=== PATIENT | female | born 1935 | race Caucasian/White ===

== ENCOUNTER 2016-12-03 10:33 | Day surgery (SDC) | payer OTHER, BC ==
[2016-11-18 12:09] VITALS: BMI 25.1
--- NOTE | 2016-11-26 13:28 | HP ---
Admitting History and Physical - Primary Care Physician PCP: Andrew Michaels - Admission Chief Complaint: Left upper back/shoulder melanoma History of Present Illness: 81 year old postmenapausal female after seeing her physical scientist who noted left upper back pigmented lesion. Shave biopsy revealed 1.7 mm melanoma without ulceration but positive deep margin. History Source: Patient Limitations to Obtaining History: No Limitations - Past Medical History Cardiovascular: Yes: Hyperlipdemia Heme/Onc: Yes: Other (CLL) Psych: Yes: Depression Endocrine: Yes: Hypothyroidism Additional Past Medical History: CLL and chronic left shoulder pain - Past Surgical History Additional Past Surgical History: BX left upper back lesion melanoma 10/2016 - Advance Directives Advance Directives: Yes: Living Will, Health Care Proxy - Smoking History Smoking history: Former smoker Have you smoked in the past 12 months: No If you are a former smoker, when did you quit?: 15 yrs ago - Alcohol/Substance Use Hx Alcohol Use: No Home Medications - Allergies Allergies/Adverse Reactions: Allergies Allergy/AdvReac Type Severity Reaction Status Date / Time No Known Allergies Allergy Verified 11/18/16 12:09 - Home Medications Home Medications: Ambulatory Orders Aripiprazole [Abilify] 5 mg PO DAILY 11/18/16 Gabapentin 400 mg PO DAILY 11/18/16 Ibrutinib [Imbruvica] 140 mg PO DAILY 11/18/16 Levothyroxine [Synthroid -] 100 mcg PO DAILY 11/18/16 Rosuvastatin Calcium [Crestor] 20 mg PO HS 11/18/16 Family Disease History - Family Disease History Family Disease History: CA: Mother (liver cancer 62) Physical Examination Constitutional: Yes: Well Nourished Extremities: Yes: Other (Left axillary lymph node soft 1.5 cm, left upper back1.0 cm eschar w/o pigmentation) Problem List - Problems (1) Melanoma Code(s): C43.9 - MALIGNANT MELANOMA OF SKIN, UNSPECIFIED Qualifiers: Melanoma location: unspecified site Qualified Code(s): C43.9 - Malignant melanoma of skin, unspecified Assessment/Plan Malignant Wide excision left upper back sentenel node biopsy , lymphoscintogram possible dissection
[2016-12-03] MEDS ORDERED: ONDANSETRON 4 MG/2 ML VIAL IVPB PRN (11:59)
[2016-12-03] MEDS ORDERED: KETOROLAC TROMETHAMINE 30 MG/1 ML VIAL IVPUSH PRN (11:59)
[2016-12-03] MEDS ORDERED: DEXTROSE 5%-0.45% SALINE 1,000 ML IV SCH (12:00)
[2016-12-03] MEDS ORDERED: ISOSULFAN BLUE 10 MG/ML VIAL SQ ONE (12:05)
[2016-12-03] MEDS ORDERED: LIDOCAINE HCL 1%, 10 MG/ML (20ML VIAL) ONE (12:05)
[2016-12-03] MEDS ORDERED: BUPIVACAINE HCL/PF 2.5 MG/ML - 30 ML VIAL IJ ONE (12:05)
[2016-12-03] MEDS ORDERED: GUM MASTIC/STORAX/MSAL/ALCOHOL 1 DRP DROPSBTL MC ONE (12:06)
[2016-12-03] MEDS ORDERED: LIDOCAINE HCL/PF 2% SDV 5ML VIAL ONE (12:31)
[2016-12-03] MEDS ORDERED: PROPOFOL 20 ML ONE ×2 (12:31)
[2016-12-03] MEDS ORDERED: ROCURONIUM BROMIDE 50 MG/5 ML VIAL ONE (12:32)
[2016-12-03] MEDS ORDERED: LIDOCAINE 1%/EPI 1:100000 (20 ML MULTI DOSE VIAL) ONE (12:34)
[2016-12-03] MEDS ORDERED: ceFAZolin SODIUM 1 GM VIAL ONE (12:42)
[2016-12-03] MEDS ORDERED: ePHEDrine SULFATE 50 MG/1 ML AMPULE ONE (12:50)
[2016-12-03] MEDS ORDERED: ONDANSETRON 4 MG/2 ML VIAL ONE (13:42)
[2016-12-03] MEDS ORDERED: LIDOCAINE 1%/EPI 1:100000 (50 ML MULTI DOSE VIAL) INF ONE (14:08)
[2016-12-03] MEDS ORDERED: ONDANSETRON 4 MG/2 ML VIAL IVPUSH PRN (14:39)
[2016-12-03] MEDS ORDERED: PROMETHAZINE HCL 25 MG/1 ML VIAL IVPUSH PRN (14:39)
[2016-12-03] MEDS ORDERED: LACTATED RINGERS SOLUTION 1,000 ML IV SCH (14:45)
[2016-12-03 15:07] VITALS: PULSE 61
[2016-12-03] MEDS ORDERED: ACETAMINOPHEN 500 MG TABLET (FP) PO ONE (16:00)
--- NOTE | 2016-12-03 16:31 | OP ---
DATE OF OPERATION: 12/03/2016 PREOPERATIVE DIAGNOSIS: Left shoulder melanoma, intermediate. POSTOPERATIVE DIAGNOSIS: Left shoulder melanoma, intermediate. PROCEDURE: Left shoulder wide excision and attempt at left axillary and left cervical sentinel node biopsy. ANESTHESIA: General intubated. ATTENDING SURGEON: Andrew Michaels M.D. ICE PLATFORM SUPERVISOR: Shahram Morales ESTIMATED BLOOD LOSS: Minimal. COMPLICATIONS: None. PROCEDURE: Patient was made aware of the risks and benefits of the procedure and consented. She was placed in the supine position. After general anesthesia was induced, the patient was intubated. Under sterile conditions, 1.5 mL of 1% isosulfan blue is infiltrated into the peritumoral tissues. Waiting approximately 10 minutes before a left axillary incision was made using blunt and sharp dissection, this was resected down. Examination of the axilla revealed very multiple rubbery lymph nodes consistent with a prior diagnosis of CLL, but no blue lymph node. The Neoprobe was used to interrogate the axilla, but it was very hard to narrow down where radioactivity was coming from. Two lymph nodes were surgically excised and submitted for permanent sectioning. No other evidence of hot or blue lymph nodes were identified. The incision was then closed with deep 3-0 Vicryl followed by running subcuticular 4-0 Monocryl. Cervical region was identified, supraclavicularly transverse incision was made using electrocautery. The deep tissues were incised using blunt and sharp dissection. Tissues were dissected, now revealing some lymph nodes, but again after interrogation there was no blue or hot uptake. It was felt best to avoid injuring these structures if there is no lymphatic mapping to them, and therefore this portion of the incisional biopsy was aborted. The wound was closed with interrupted 3-0 Vicryl followed by running subcuticular 4-0 Monocryl. Steri-Strips and a sterile bandage were applied to both incisions. The patient was then placed in the right lateral decubitus position, 2 cm margin as well as ellipse were made around the primary cancer. Using 1% lidocaine with epinephrine for local anesthesia and hemostasis. Transversely oriented elliptical incision was made. Using electrocautery, tissues were dissected down to the muscular fascia, which was incised with a specimen, this was submitted with a short suture at 12 o'clock and a long sutures at 9 o'clock. Hemostasis was maintained by pressure and electrocautery. Thick skin flaps were made superiorly and inferiorly, excising some of the underlying fascia to get further compliance with the flaps. These were then closed with interrupted 3-0 Vicryl followed by a running subdermal 3-0 Vicryl, followed by running simple sutures of 3-0 nylon in the skin. Sterile dressing applied, and the patient tolerated the procedure, was sent to recovery room in excellent condition. ANDREW MICHAELS M.D. [id number]
[2016-12-03 16:38] VITALS: BP 125/68; TEMP 98
--- NOTE | 2016-12-06 14:25 | PATH ---
Surgical Pathology Report Patient Name: GEM GOTTI [facility]. Rec. #: [id number] /Age/Gender: 1935 (Age: 81) / F Account: [id number] Location: [facility] Taken: 12/03/2016 Received: 12/03/2016 Reported: 12/06/2016 Physicians: Andrew Michaels M.D. Specimen(s) Received A: LEFT AXILLARY NODES B: LEFT SHOULDER WIDE EXCISION Clinical History Left shoulder melanoma Final Diagnosis A. SENTINEL LYMPH NODES, LEFT AXILLARY, BIOPSY: TWO LYMPH NODE, NEGATIVE FOR METASTATIC MELANOMA BY H&E AND IMMUNOSTAINS (0/2). Comment: Immunohistochemical stains for Melan A and SOX10 performed at [place], [place] ([id number]) on blocks A1 and A2 and interpreted at [facility] are negative supporting the interpretation above. B. SKIN AND UNDERLYING SOFT TISSUE, LEFT SHOULDER, WIDE EXCISION: FOCAL RESIDUAL MALIGNANT MELANOMA (0.5 MM FOCUS), SUPERFICIAL SPREADING TYPE; ATYPICAL MELANOCYTES AT THE DERMAL-EPIDERMAL JUNCTION ALSO PRESENT. TUMOR THICKNESS: 1.8 CM (MEASURED IN THIS SPECIMNEN, SEE COMMENT). ANATOMIC LEVEL: LEVEL IV. ULCERATION: ABSENT. MICROSATELLITOSIS: ABSENT. MITOTIC INDEX: SEE COMMENT. TUMOR REGRESSION: NOT IDENTIFIED. LYMPHOVASCULAR INVASION: NOT IDENTIFIED. SURGICAL RESECTION MARGINS: NEGATIVE FOR MELANOMA; CLOSEST RESECTION MARGIN (PERIPHERAL AT 7:00) IS 0.7 CM AWAY FROM MELANOMA; ATYPICAL JUNCTIONAL MELANOCYTES ARE >2 MM FROM THE PERIPHERAL MARGIN. DERMAL SCAR PRESENT. SOLAR ELASTOSIS PRESENT. PATHOLOGIC STAGING: PRIMARY TUMOR: pT2a LYMPH NODES: pN0 Comment: The prior biopsy showed malignant melanoma, superficial spreading type comment with the thickness of least 1.7 mm, level IV, without ulceration and with the mitotic index of 13/mm2. Comments Melanoma Case Summary (based on AJCC, 7th edition) Procedure: _x_ Excision Specimen Laterality: _x_ Left Tumor Site: Specify: left shoulder Tumor Size (required only if tumor is grossly present): _x_ Cannot be determined (explain): tumor is not grossly seen Macroscopic Satellite Nodules: _x_ Not identified Histologic Type: Invasive Melanoma _x_ Superficial spreading melanoma Melanoma In Situ: _x_ Atypical melanocytes at the dermal-epidermal junction present Maximum Tumor Thickness: 1.8 mm Anatomic Level: _x_ IV (melanoma invades reticular dermis) Ulceration _x_ Not identified Margins: Peripheral Margins _x_ Uninvolved by invasive melanoma Distance of invasive melanoma from closest peripheral margin: 7 mm Location: 7:00 _x_ Uninvolved by melanoma in situ (atypical melanocytes at the dermal-epidermal junction) Distance of from closest margin to atypical junctional melanocytes: >2 mm Closest location: 6:00 Deep Margin _x_ Uninvolved by invasive melanoma Distance of invasive melanoma from margin: 16 mm Mitotic Rate _x_ =1/mm2 (13/mm2) (determined on the prior biops) Microsatellitosis: _x_ Not identified Lymph-Vascular Invasion _x_ Not identified Perineural Invasion _x_ Not identified Tumor-Infiltrating Lymphocytes _x_ Present, brisk Tumor Regression _x_ Not identified Lymph Nodes: Total number of nodes examined (sentinel and nonsentinel): 2 Number of sentinel nodes examined: 2 Number of lymph nodes with metastases: 0 Extranodal tumor extension: not applicable Pathologic Staging (pTNM): Primary Tumor (pT): pT2a (Melanoma 1.01 to 2.0 mm in thickness, no ulceration) Regional Lymph Nodes (pN): pN0 Distant Metastasis (pM): not applicable Electronically Signed Waldo Garcia M.D. Gross Description A. Received in formalin labeled "left axillary nodes" are 2 rivera, irregular lymph nodes measuring 0.9 x 0.6 x 0.4 cm and 0.9 x 0.8 x 0.4 cm. The specimens are bisected and entirely submitted in 2 cassettes. B. Received in formalin labeled "left shoulder wide excision" is a 6.4 x 3.5 cm rivera, elliptical portion of skin excised to a depth of 2.0 cm. There is a short suture marking the 12:00 aspect and a long suture marking the 9:00 tip of the specimen, per the surgeon. The epidermal surface displays a 1.5 x 0.9 cm ill-defined, focally depressed lesion at 0.7 cm from the closest radial margin (7:00). The specimen is inked as follows: 12:00 aspect blue; 6:00 aspect green; 9:00 tip red; 3:00 tip yellow; deep black. The specimen is serially sectioned from 3:00 to 9:00. The specimen is entirely and sequentially submitted in 22 cassettes from 3:00 tip (cassette 1) to 9:00 tip (cassette 22) with bisected sections in cassettes 5/6, 7/8, /, /, 13/14, and 15/16. 12/04/201612/04/2016
== END 2016-12-03 16:30 | disposition home or self-care (01) ==
LOC: FASU 10:33
PROVIDERS: ATTEND Surgery Surgical Oncology
PROC: 07B20ZX Excision of Left Neck Lymphatic, Open Approach, Diagnostic (ICD-10-PCS; 2016-12-03)
PROC: 0JBF0ZX Excision of Left Upper Arm Subcutaneous Tissue and Fascia, Open Approach, Diagnostic (ICD-10-PCS; principal; 2016-12-03 12:54)
PROC: 07B60ZZ Excision of Left Axillary Lymphatic, Open Approach (ICD-10-PCS; 2016-12-03 12:54)
DX: C49.12 Malignant neoplasm of connective and soft tissue of left upper limb, including shoulder (principal); C91.10 Chronic lymphocytic leukemia of B-cell type not having achieved remission; E78.5 Hyperlipidemia, unspecified; E03.9 Hypothyroidism, unspecified; F32.9 Major depressive disorder, single episode, unspecified; Z53.8 Procedure and treatment not carried out for other reasons
CPT/HCPCS: 78195-TC; 94760; A9541

== ENCOUNTER 2020-03-16 16:29 | Inpatient (IN) | payer OTHER, BC ==
[2020-03-16] MEDS: SODIUM CHLORIDE 1,000 ML IV SCH ×2 (17:31→23:29)
[2020-03-16 17:37] LABS: BASO % 0.6 % (0-2.0); EOS % 0.5 % (0-4.5); HEMATOCRIT 37.8 % (32.4-45.2); HEMOGLOBIN 12.4 GM/dL (10.7-15.3); LYMPH % 46.3 % (8-40); MCH 26.8 pg (25.7-33.7); MCHC 32.8 g/dl (32.0-36.0); MEAN CELL VOLUME 81.8 fl (80-96); MONO % 3.3 % (3.8-10.2); NEUT % 49.3 % (42.8-82.8); RBC 4.62 M/mm3 (3.60-5.2); RDW 17.3 % (11.6-15.6); WHITE BLOOD COUNT 8.9 K/mm3 (4.0-10.0)
[2020-03-16 17:43] LABS: INR 0.95 (0.83-1.09); PROTHROMBIN TIME (PATIENT) 11.2 SEC (9.7-13.0)
[2020-03-16 17:45] LABS: ACTIVATED PTT 30.8 SECONDS (25.2-36.5)
[2020-03-16 18:05] LABS: CHOLESTEROL 164 mg/dL (50-200); HDL CHOLESTEROL 63 mg/dL (40-60); LDL CHOLESTEROL (ONLY SJRH) 82 mg/dL (5-100); TRIGLYCERIDES 160 mg/dL (0-150)
[2020-03-16 18:07] LABS: ALBUMIN 3.8 g/dl (3.4-5.0); ALK PHOS 78 U/L (45-117); ANION GAP 14 MMOL/L (8-16); BILIRUBIN,TOTAL 0.3 mg/dL (0.2-1); CALCIUM 8.3 mg/dL (8.5-10.1); CHLORIDE 103 mmol/L (98-107); CO2 21 mmol/L (21-32); CREATININE 0.7 mg/dL (0.55-1.3); GLUCOSE,RANDOM 83 mg/dL (74-106); POTASSIUM 3.9 mmol/L (3.5-5.1); SGOT/AST 5 U/L (15-37); SGPT/ALT 22 U/L (13-61); SODIUM 138 mmol/L (136-145); TOT PROT 6.3 g/dl (6.4-8.2)
[2020-03-16] MEDS ORDERED: DEXAMETHASONE SOD PHOSPHATE 10 MG/1 ML VIAL IVPUSH ONE (18:24)
[2020-03-16 18:40] LABS: PLATELET ESTIMATE ADEQUATE
[2020-03-16] MEDS ORDERED: DEXAMETHASONE SOD PHOSPHATE 10 MG/1 ML VIAL ONE (19:08)
[2020-03-16] MEDS: prednisoLONE ACETATE 1% OPHTH SUSP 5 ML BOTTLE OD SCH (23:28)
[2020-03-16] MEDS: CHLORHEXIDINE GLUCONATE 4% CLEANSER FOR DECOLONIZATION TP SCH (23:28)
[2020-03-16] MEDS: MUPIROCIN 2% TOPICAL OINTMENT FOR DECOLONIZATION NS SCH (23:29)
[2020-03-16] MEDS: ROSUVASTATIN CA 20 MG TABLET (FP) PO SCH (23:31)
[2020-03-16 23:43] LABS: EPI CELLS 1 /uL (0-25.1); HYALINE CASTS 0 /uL (0-3.1); URINE APPEARANCE CLEAR; URINE BACTERIA 1 /uL (0-1359); URINE BILIRUBIN NEGATIVE (NEGATIVE); URINE COLOR YELLOW; URINE GLUCOSE (UA) NEGATIVE (NEGATIVE); URINE KETONE NEGATIVE (NEGATIVE); URINE LEUK ESTERASE NEGATIVE (NEGATIVE); URINE NITRITE NEGATIVE (NEGATIVE); URINE PROTEIN NEGATIVE (NEGATIVE); URINE RBC 63 /uL (0-23.9); URINE UROBILINOGEN 0.2 mg/dL (0.2-1.0); URINE WBC 1 /uL (0-25.8)
[2020-03-17] MEDS: HEPARIN NA (PORCINE) 5,000 UNITS/ML 1ML VIAL SQ SCH ×3 (01:25→18:10)
[2020-03-17] MEDS: DEXAMETHASONE SOD PHOSPHATE 4 MG/1 ML VIAL IVPUSH SCH ×4 (02:01→21:20)
[2020-03-17] MEDS: LEVOTHYROXINE NA 100 MCG TABLET (FP) PO SCH (06:34)
[2020-03-17 07:21] LABS: PROTHROMBIN TIME (PATIENT) 11.8 SEC (9.7-13.0)
[2020-03-17 07:24] LABS: ACTIVATED PTT 31.7 SECONDS (25.2-36.5)
[2020-03-17 07:32] LABS: ALBUMIN 3.4 g/dl (3.4-5.0); BILIRUBIN,TOTAL 0.4 mg/dL (0.2-1); BLOOD UREA NITROGEN 14.9 mg/dL (7-18); CALCIUM 8.9 mg/dL (8.5-10.1); CREATININE 0.6 mg/dL (0.55-1.3); MAGNESIUM 1.8 mg/dL (1.8-2.4); PHOSPHOROUS 4.3 mg/dL (2.5-4.9); TOT PROT 6.1 g/dl (6.4-8.2)
[2020-03-17 07:39] LABS: HEMATOCRIT 39.2 % (32.4-45.2); HEMOGLOBIN 12.7 GM/dL (10.7-15.3); MCH 26.3 pg (25.7-33.7); MCHC 32.3 g/dl (32.0-36.0); MEAN CELL VOLUME 81.3 fl (80-96); MEAN PLT VOLUME 9.7 fl (7.5-11.1); PLATELET COUNT 93 K/MM3 (134-434); RBC 4.82 M/mm3 (3.60-5.2); RDW 18.1 % (11.6-15.6); WHITE BLOOD COUNT 8.5 K/mm3 (4.0-10.0)
[2020-03-17] MEDS: ATROPINE SULFATE 1% OD SCH (09:35)
[2020-03-17] MEDS: PANTOPRAZOLE 40 MG TABLET PO SCH (09:36)
[2020-03-17] MEDS: prednisoLONE ACETATE 1% OPHTH SUSP 5 ML BOTTLE OD SCH ×4 (09:36→21:28)
[2020-03-17] MEDS: MUPIROCIN 2% TOPICAL OINTMENT FOR DECOLONIZATION NS SCH ×2 (09:37→21:28)
[2020-03-17] MEDS: GABAPENTIN 100 MG CAPSULE PO SCH (09:37)
[2020-03-17] MEDS ORDERED: PT OWN MED DRAWER 7, Y5N ONE (09:39)
[2020-03-17] MEDS: DICLOFENAC SODIUM 25 MG TABLET.DR PO SCH (09:44)
[2020-03-17] MEDS: ARIPiprazole 2 MG TABLET PO SCH (09:44)
[2020-03-17] MEDS: CHLORHEXIDINE GLUCONATE 4% CLEANSER FOR DECOLONIZATION TP SCH (21:20)
[2020-03-17] MEDS: ROSUVASTATIN CA 20 MG TABLET (FP) PO SCH (21:20)
[2020-03-18] MEDS: HEPARIN NA (PORCINE) 5,000 UNITS/ML 1ML VIAL SQ SCH ×3 (02:39→18:09)
[2020-03-18] MEDS: DEXAMETHASONE SOD PHOSPHATE 4 MG/1 ML VIAL IVPUSH SCH ×4 (02:39→20:26)
[2020-03-18] MEDS: LEVOTHYROXINE NA 100 MCG TABLET (FP) PO SCH (06:05)
[2020-03-18 08:05] LABS: ALBUMIN 3.2 g/dl (3.4-5.0); ALK PHOS 63 U/L (45-117); ANION GAP 7 MMOL/L (8-16); BILIRUBIN,TOTAL 0.7 mg/dL (0.2-1); BLOOD UREA NITROGEN 22.8 mg/dL (7-18); CHLORIDE 104 mmol/L (98-107); CO2 27 mmol/L (21-32); CREATININE 0.6 mg/dL (0.55-1.3); GLUCOSE,RANDOM 125 mg/dL (74-106); PHOSPHOROUS 4.5 mg/dL (2.5-4.9); POTASSIUM 3.9 mmol/L (3.5-5.1); SGPT/ALT 19 U/L (13-61); SODIUM 139 mmol/L (136-145); TOT PROT 5.9 g/dl (6.4-8.2)
[2020-03-18 08:14] LABS: MAGNESIUM 2.2 mg/dL (1.8-2.4)
[2020-03-18 08:16] LABS: SGOT/AST < 3 U/L (15-37)
[2020-03-18 08:19] LABS: HEMATOCRIT 37.7 % (32.4-45.2); HEMOGLOBIN 12.4 GM/dL (10.7-15.3); MCH 26.8 pg (25.7-33.7); MCHC 32.8 g/dl (32.0-36.0); MEAN CELL VOLUME 81.8 fl (80-96); MEAN PLT VOLUME 10.1 fl (7.5-11.1); PLATELET COUNT 102 K/MM3 (134-434); RBC 4.61 M/mm3 (3.60-5.2); RDW 17.7 % (11.6-15.6); WHITE BLOOD COUNT 13.4 K/mm3 (4.0-10.0)
[2020-03-18] MEDS ORDERED: PT OWN MED DRAWER 7, Y5N ONE (09:34)
[2020-03-18] MEDS: ATROPINE SULFATE 1% OD SCH (09:37)
[2020-03-18] MEDS: ARIPiprazole 2 MG TABLET PO SCH (09:37)
[2020-03-18] MEDS: MUPIROCIN 2% TOPICAL OINTMENT FOR DECOLONIZATION NS SCH ×2 (09:37→21:17)
[2020-03-18] MEDS: GABAPENTIN 100 MG CAPSULE PO SCH (09:38)
[2020-03-18] MEDS: prednisoLONE ACETATE 1% OPHTH SUSP 5 ML BOTTLE OD SCH ×4 (09:38→21:16)
[2020-03-18] MEDS: PANTOPRAZOLE 40 MG TABLET PO SCH (09:39)
[2020-03-18] MEDS: DICLOFENAC SODIUM 25 MG TABLET.DR PO SCH (09:39)
[2020-03-18 15:07] VITALS: BMI 22.9
[2020-03-18] MEDS: ROSUVASTATIN CA 20 MG TABLET (FP) PO SCH (21:16)
[2020-03-18] MEDS: CHLORHEXIDINE GLUCONATE 4% CLEANSER FOR DECOLONIZATION TP SCH (21:17)
[2020-03-19] MEDS: HEPARIN NA (PORCINE) 5,000 UNITS/ML 1ML VIAL SQ SCH ×3 (03:00→17:44)
[2020-03-19] MEDS: DEXAMETHASONE SOD PHOSPHATE 4 MG/1 ML VIAL IVPUSH SCH ×4 (03:01→20:22)
[2020-03-19] MEDS: LEVOTHYROXINE NA 100 MCG TABLET (FP) PO SCH (06:56)
[2020-03-19 06:58] LABS: HEMATOCRIT 36.7 % (32.4-45.2); HEMOGLOBIN 11.8 GM/dL (10.7-15.3); MCHC 32.2 g/dl (32.0-36.0); MEAN CELL VOLUME 80.9 fl (80-96); MEAN PLT VOLUME 10.5 fl (7.5-11.1); PLATELET COUNT 116 K/MM3 (134-434); RBC 4.53 M/mm3 (3.60-5.2); RDW 18.6 % (11.6-15.6); WHITE BLOOD COUNT 11.8 K/mm3 (4.0-10.0)
[2020-03-19 07:37] LABS: BLOOD UREA NITROGEN 29.7 mg/dL (7-18); MAGNESIUM 2.2 mg/dL (1.8-2.4); POTASSIUM 3.9 mmol/L (3.5-5.1)
[2020-03-19 07:39] LABS: CALCIUM 7.7 mg/dL (8.5-10.1); CREATININE 0.6 mg/dL (0.55-1.3); PHOSPHOROUS 3.6 mg/dL (2.5-4.9)
[2020-03-19] MEDS: prednisoLONE ACETATE 1% OPHTH SUSP 5 ML BOTTLE OD SCH ×4 (09:25→22:00)
[2020-03-19] MEDS: DICLOFENAC SODIUM 25 MG TABLET.DR PO SCH (09:26)
[2020-03-19] MEDS: PANTOPRAZOLE 40 MG TABLET PO SCH (09:27)
[2020-03-19] MEDS: ARIPiprazole 2 MG TABLET PO SCH (09:27)
[2020-03-19] MEDS: ATROPINE SULFATE 1% OD SCH (09:28)
[2020-03-19] MEDS: GABAPENTIN 100 MG CAPSULE PO SCH (09:28)
[2020-03-19] MEDS: MUPIROCIN 2% TOPICAL OINTMENT FOR DECOLONIZATION NS SCH ×2 (09:39→21:59)
[2020-03-19] MEDS: ROSUVASTATIN CA 20 MG TABLET (FP) PO SCH (21:59)
[2020-03-19] MEDS: CHLORHEXIDINE GLUCONATE 4% CLEANSER FOR DECOLONIZATION TP SCH (21:59)
[2020-03-20] MEDS: HEPARIN NA (PORCINE) 5,000 UNITS/ML 1ML VIAL SQ SCH ×3 (02:09→21:34)
[2020-03-20] MEDS: DEXAMETHASONE SOD PHOSPHATE 4 MG/1 ML VIAL IVPUSH SCH ×4 (02:09→21:33)
[2020-03-20] MEDS: LEVOTHYROXINE NA 50 MCG TABLET (FP) PO SCH (06:30)
[2020-03-20 07:40] LABS: BASO % 0.2 % (0-2.0); HEMATOCRIT 38.3 % (32.4-45.2); HEMOGLOBIN 12.5 GM/dL (10.7-15.3); LYMPH % 18.8 % (8-40); MCH 26.4 pg (25.7-33.7); MCHC 32.8 g/dl (32.0-36.0); MEAN CELL VOLUME 80.7 fl (80-96); MEAN PLT VOLUME 10.8 fl (7.5-11.1); MONO % 2.5 % (3.8-10.2); NEUT % 78.5 % (42.8-82.8); PLATELET COUNT 120 K/MM3 (134-434); RBC 4.74 M/mm3 (3.60-5.2); RDW 17.9 % (11.6-15.6); WHITE BLOOD COUNT 10.8 K/mm3 (4.0-10.0)
[2020-03-20 08:13] LABS: ALBUMIN 3.2 g/dl (3.4-5.0); ALK PHOS 60 U/L (45-117); ANION GAP 6 MMOL/L (8-16); BILIRUBIN,TOTAL 0.4 mg/dL (0.2-1); CALCIUM 8.5 mg/dL (8.5-10.1); CHLORIDE 106 mmol/L (98-107); CO2 28 mmol/L (21-32); CREATININE 0.6 mg/dL (0.55-1.3); GLUCOSE,RANDOM 107 mg/dL (74-106); POTASSIUM 4.1 mmol/L (3.5-5.1); SGOT/AST < 3 U/L (15-37); SGPT/ALT 20 U/L (13-61); SODIUM 139 mmol/L (136-145); TOT PROT 5.8 g/dl (6.4-8.2)
[2020-03-20 08:57] LABS: PLATELET ESTIMATE DECREASED
[2020-03-20] MEDS ORDERED: PT OWN MED DRAWER 7, Y5N ONE (09:17)
[2020-03-20] MEDS: PANTOPRAZOLE 40 MG TABLET PO SCH (09:35)
[2020-03-20] MEDS: GABAPENTIN 100 MG CAPSULE PO SCH (09:35)
[2020-03-20] MEDS: DICLOFENAC SODIUM 25 MG TABLET.DR PO SCH (09:36)
[2020-03-20] MEDS: ARIPiprazole 2 MG TABLET PO SCH (09:37)
[2020-03-20] MEDS: MUPIROCIN 2% TOPICAL OINTMENT FOR DECOLONIZATION NS SCH (09:37)
[2020-03-20] MEDS: prednisoLONE ACETATE 1% OPHTH SUSP 5 ML BOTTLE OD SCH ×5 (09:38→21:54)
[2020-03-20] MEDS: ATROPINE SULFATE 1% OD SCH (09:39)
[2020-03-20] MEDS: CHLORHEXIDINE GLUCONATE 4% CLEANSER FOR DECOLONIZATION TP SCH (21:34)
[2020-03-20] MEDS: ROSUVASTATIN CA 20 MG TABLET (FP) PO SCH (21:34)
[2020-03-20] MEDS ORDERED: MUPIROCIN 2% TOPICAL OINTMENT FOR DECOLONIZATION NS SCH (22:00)
[2020-03-21] MEDS: DEXAMETHASONE SOD PHOSPHATE 4 MG/1 ML VIAL IVPUSH SCH ×4 (02:12→21:06)
[2020-03-21] MEDS: HEPARIN NA (PORCINE) 5,000 UNITS/ML 1ML VIAL SQ SCH (05:58)
[2020-03-21] MEDS: LEVOTHYROXINE NA 50 MCG TABLET (FP) PO SCH (06:01)
[2020-03-21 07:11] LABS: HEMATOCRIT 38.4 % (32.4-45.2); HEMOGLOBIN 12.5 GM/dL (10.7-15.3); MCH 26.7 pg (25.7-33.7); MCHC 32.6 g/dl (32.0-36.0); MEAN CELL VOLUME 81.8 fl (80-96); MEAN PLT VOLUME 10.2 fl (7.5-11.1); RBC 4.69 M/mm3 (3.60-5.2); RDW 18.5 % (11.6-15.6); WHITE BLOOD COUNT 11.1 K/mm3 (4.0-10.0)
[2020-03-21 07:40] LABS: BLOOD UREA NITROGEN 32.5 mg/dL (7-18); CALCIUM 8.4 mg/dL (8.5-10.1); CREATININE 0.6 mg/dL (0.55-1.3)
[2020-03-21] MEDS: GABAPENTIN 100 MG CAPSULE PO SCH (09:58)
[2020-03-21] MEDS: PANTOPRAZOLE 40 MG TABLET PO SCH (09:58)
[2020-03-21] MEDS: DICLOFENAC SODIUM 25 MG TABLET.DR PO SCH (09:59)
[2020-03-21] MEDS: ATROPINE SULFATE 1% OD SCH (10:00)
[2020-03-21] MEDS: prednisoLONE ACETATE 1% OPHTH SUSP 5 ML BOTTLE OD SCH ×4 (10:00→21:12)
[2020-03-21] MEDS ORDERED: ARIPiprazole 2 MG TABLET PO SCH (10:00)
[2020-03-21 10:02] LABS: PLATELET COUNT 111 K/MM3 (134-434)
[2020-03-21] MEDS: CHLORHEXIDINE GLUCONATE 4% CLEANSER FOR DECOLONIZATION TP SCH (21:08)
[2020-03-21] MEDS: ROSUVASTATIN CA 20 MG TABLET (FP) PO SCH (21:08)
[2020-03-22] MEDS: DEXAMETHASONE SOD PHOSPHATE 4 MG/1 ML VIAL IVPUSH SCH ×2 (03:26→09:14)
[2020-03-22] MEDS: LEVOTHYROXINE NA 50 MCG TABLET (FP) PO SCH (06:18)
[2020-03-22 07:32] LABS: HEMATOCRIT 37.8 % (32.4-45.2); HEMOGLOBIN 12.3 GM/dL (10.7-15.3); MCH 26.3 pg (25.7-33.7); MCHC 32.4 g/dl (32.0-36.0); MEAN CELL VOLUME 81.1 fl (80-96); MEAN PLT VOLUME 9.7 fl (7.5-11.1); PLATELET COUNT 116 K/MM3 (134-434); RBC 4.66 M/mm3 (3.60-5.2); RDW 17.9 % (11.6-15.6); WHITE BLOOD COUNT 10.8 K/mm3 (4.0-10.0)
[2020-03-22 08:13] LABS: BLOOD UREA NITROGEN 32.8 mg/dL (7-18); CALCIUM 8.7 mg/dL (8.5-10.1); CREATININE 0.5 mg/dL (0.55-1.3); POTASSIUM 4.1 mmol/L (3.5-5.1)
[2020-03-22] MEDS ORDERED: PT OWN MED DRAWER 7, Y5N ONE (09:10)
[2020-03-22] MEDS: DICLOFENAC SODIUM 25 MG TABLET.DR PO SCH (09:14)
[2020-03-22] MEDS: GABAPENTIN 100 MG CAPSULE PO SCH (09:14)
[2020-03-22] MEDS: PANTOPRAZOLE 40 MG TABLET PO SCH (09:14)
[2020-03-22] MEDS: prednisoLONE ACETATE 1% OPHTH SUSP 5 ML BOTTLE OD SCH ×2 (09:17→14:40)
[2020-03-22] MEDS: ATROPINE SULFATE 1% OD SCH (09:17)
[2020-03-22] MEDS ORDERED: ARIPiprazole 5 MG TABLET PO SCH (10:00)
[2020-03-22 14:05] VITALS: BP 136/65; PULSE 55; TEMP 98
== END 2020-03-22 17:07 | disposition home health service (06) | DRG 54 ==
LOC: JER 16:29 → JERBED 20:12 → JICU 21:29 → J4W 03-20 13:16
PROVIDERS: ADMIT Internal Medicine Pulmonary Disease; ATTEND Internal Medicine
DX: C79.31 Secondary malignant neoplasm of brain (principal); G93.5 Compression of brain; G93.6 Cerebral edema; C91.10 Chronic lymphocytic leukemia of B-cell type not having achieved remission; C79.2 Secondary malignant neoplasm of skin; R47.01 Aphasia; C78.00 Secondary malignant neoplasm of unspecified lung; E78.5 Hyperlipidemia, unspecified; I69.892 Facial weakness following other cerebrovascular disease; I69.820 Aphasia following other cerebrovascular disease; E03.9 Hypothyroidism, unspecified; H26.9 Unspecified cataract; G62.9 Polyneuropathy, unspecified; H35.30 Unspecified macular degeneration; F32.9 Major depressive disorder, single episode, unspecified
CPT/HCPCS: 36415; 70450-TC; 70552-TC; 71045-TC-FY; 71270-TC; 74178-TC; 80048; 80053; 80061; 81003; 82550; 83721; 83735; 84100; 84484; 85025; 85027; 85610; 85730; 86301; 86777; 86778; 86850; 86900; 86901; 87102; 87210; 87305; 87497; 87899; 93005; 93010; 93306-TC; 97116-GP; 97162-GP; 99291; C9803; J1100; J1644; Q9967; U0003

== ENCOUNTER 2020-03-29 06:00 | Day surgery (SDC) | payer OTHER, BC ==
--- OUTSIDE RECORDS SUMMARY | 2020-03-29 09:06 | XMS ---
:1935 Author Organization [facility] Care Team Providers Name Role Phone PEG SYLVESTER Unavailable Unavailable Re-disclosure Warning The records that you are about to access may contain information from federally- assisted alcohol or drug abuse programs. If such information is present, then the following federally mandated warning applies: This information has been disclosed to you from records protected by federal confidentiality rules (42 CFR part 2). The federal rules prohibit you from making any further disclosure of this information unless further disclosure is expressly permitted by the written consent of the person to whom it pertains or as otherwise permitted by 42 CFR part 2. A general authorization for the release of medical or other information is NOT sufficient for this purpose. The Federal rules restrict any use of the information to criminally investigate or prosecute any alcohol or drug abuse patient.The records that you are about to access may contain highly sensitive health information, the redisclosure of which is protected by Article 27-F of the [facility] Public Health law. If you continue you may haveaccess to information: Regarding HIV / AIDS; Provided by facilities licensed or operated by the [facility] Office of Mental Health; or Provided by the [facility] Office for People With Developmental Disabilities. If such information is present, then the following [facility] mandated warning applies: This information has been disclosed to you from confidential records which are protected by state law. State law prohibits you from making any further disclosure of this information without the specific written consent of the person to whom it pertains, or as otherwise permitted by law. Any unauthorized further disclosure in violation of state law may result in a fine or [place] health [facility] sentence or both. A general authorization for the release of medical or other information is NOT sufficient authorization for further disclosure. Encounters Encounter Providers Location Date Indications Data Source(s ) Outpatient Attender: HIGINIO, 05/31/2019 C91.90 [facility] TAUSEEFAdmitter: 10:46:00 AM Health Care CAYETANO SYLVESTER [employer] TAUSEEFReferrer: PEG SYLVESTER C91.90 Outpatient Attender: HIGINIO, 03/08/2019 11:47:00 C91.90 [facility] TAUSEEFAdmitter: HIGINIO, AM EDT [facility] Care TAUSEEFReferrer: Karen SYLVESTER [employer] TAUSE C91.90 Insurance Providers Payer name Policy type Policy ID Covered Covered democrat's Policy P vincent / Coverage democrat ID relationship to [employer] ormation type holt BC OUT OF [id number] SP [id number] STATE [id number] MEDICARE [id number] SP [id number] BC OUT OF [id number] SP [id number] STATE [id number] Problems, Conditions, and Diagnoses Code Display Name Description Problem Type Effective Dates Data Source(s) C91.90 Lymphoid LYMPHOID Diagnosis 05/31/2019 [place] [facility], LEUKEMIA, 10:46:00 AM [facility] He alth unspecified not UNSPECIFIED NOT [place] having achieved HAVING ACHIEVED remission REMISSION Results ID Date Data Source [id number] 03/26/2020 08:20:00 AM EDT [facility] Name Value Range Interpretation Description Data Sup porting Code Source(s) Document(s ) SARS [facility] coronavirus 2 RNA This lab was ordered by [facility] and reported by [facility]. ID Date Data Source [id number] 03/16/2020 09:06:00 PM EDT [facility] Name Value Range Interpretation Description Data Sup porting Code Source(s) Document(s ) SARS [facility] coronavirus 2 RNA This lab was ordered by [facility] and reported by [facility]. Procedure
[2020-03-29 15:37] VITALS: BP 150/75; PULSE 70; TEMP 98
--- NOTE | 2020-03-31 14:04 | PATH ---
Surgical Pathology Report Patient Name: GEM GOTTI Med. Rec. #: [id number] /Age/Gender: 1935 (Age: 84) / F Account: [id number] Location: RADIOLOGY INTER Taken: 03/29/2020 Received: 03/29/2020 Reported: 03/31/2020 Physicians: Melvi Ramos M.D. Specimen(s) Received LUNG, RIGHT, CT GUIDED CORE BIOPSY Clinical History 84 year old female with history of CLL and melanoma now with multiple lung lesions and brain lesions Final Diagnosis LUNG, RIGHT, CT GUIDED CORE BIOPSY: METASTATIC MELANOMA. SEE COMMENT. Comment: Core biopsy shows a malignant neoplasm with spindle and epithelioid features associated with pigment deposition. Immunohistochemical stains performed and interpreted at [facility] show the tumor is positive for S100, while negative for AE1/3, CD20, and CD45. Additional immunohistochemical stains performed at [place], [place] ([id number]) and interpreted at [facility] show the tumor is positive for Melan-A and SOX-10, while negative for CD38 and desmin. Overall findings are consistent with metastatic melanoma. Multiple lung nodules by imaging and history of CLL and melanoma noted. Suggest clinical and radiologic correlation. Positive and negative controls (internal if applicable) show appropriate results. Electronically Signed Rita Ponce M.D. Addendum Reported: 03/31/2020 Addendum Diagnosis Findings discussed with Dr. Hall, 03/31/2020. Rita Ponce M.D. Gross Description Received in formalin labeled "right lung biopsy," is a 0.5 x 0.3 x 0.1 cm aggregate of rivera-brown, irregular to cylindrical portions of soft tissue. The formalin is filtered and the specimen is entirely submitted in one cassette. DL/03/29/2020 saudi/03/29/2020
== END 2020-03-29 15:35 | disposition home or self-care (01) ==
LOC: JRADIR 06:00
PROVIDERS: ATTEND Internal Medicine Pulmonary Disease
PROC: 0BBK3ZX Excision of Right Lung, Percutaneous Approach, Diagnostic (ICD-10-PCS; principal; 2020-03-29)
DX: C78.01 Secondary malignant neoplasm of right lung (principal); Z85.6 Personal history of leukemia
CPT/HCPCS: 32405; 71045-TC-FY; 87102; 87116; 87206; 87210; 88305-TC; 88341-TC; 88342-TC

== ENCOUNTER 2020-06-08 19:33 | Inpatient (IN) | payer OTHER, BC ==
[2020-06-08 20:44] LABS: EOS % 0.1 % (0-4.5); MCH 28.2 pg (25.7-33.7); MCHC 32.8 g/dl (32.0-36.0); PLATELET COUNT 124 K/MM3 (134-434); RDW 16.8 % (11.6-15.6)
[2020-06-08 20:48] LABS: BASO % 0.2 % (0-2.0); HEMATOCRIT 38.7 % (32.4-45.2); HEMOGLOBIN 12.7 GM/dL (10.7-15.3); LYMPH % 38.1 % (8-40); MEAN PLT VOLUME 9.1 fl (7.5-11.1); MONO % 3.8 % (3.8-10.2); NEUT % 57.8 % (42.8-82.8); WHITE BLOOD COUNT 11.3 K/mm3 (4.0-10.0)
[2020-06-08 21:00] LABS: PROTHROMBIN TIME (PATIENT) 12.3 SEC (9.7-13.0)
[2020-06-08 21:02] LABS: ACTIVATED PTT 25.3 SECONDS (25.2-36.5)
[2020-06-08 21:17] LABS: ALBUMIN 2.7 g/dl (3.4-5.0); BLOOD UREA NITROGEN 24.8 mg/dL (7-18); CALCIUM 8.5 mg/dL (8.5-10.1)
[2020-06-08 21:20] LABS: CREATININE 0.6 mg/dL (0.55-1.3)
[2020-06-08 21:22] LABS: BILIRUBIN,TOTAL 0.6 mg/dL (0.2-1); TOT PROT 5.4 g/dl (6.4-8.2)
[2020-06-08] MEDS ORDERED: DEXAMETHASONE SOD PHOSPHATE 20 MG/5 ML VIAL IVPB ONE (21:36)
[2020-06-08 21:54] LABS: PHOSPHOROUS 4.3 mg/dL (2.5-4.9)
[2020-06-08 21:59] LABS: ANISOCYTOSIS 1+; MACROCYTOSIS 0; OVALOCYTE 1+; PLATELET ESTIMATE DECREASED
[2020-06-08] MEDS ORDERED: levETIRAcetam 500 MG/5 ML INJECTION VIAL IVPB ONE (22:02)
[2020-06-08] MEDS ORDERED: DEXAMETHASONE SOD PHOSPHATE 10 MG/1 ML VIAL ONE (22:02)
[2020-06-08] MEDS: levETIRAcetam 500 MG/5 ML INJECTION VIAL IVPB SCH (22:16)
[2020-06-09] MEDS ORDERED: SODIUM CHLORIDE 500 ML IV STA (01:57)
[2020-06-09] MEDS ORDERED: DEXAMETHASONE SOD PHOSPHATE 10 MG/1 ML VIAL IVPUSH SCH (03:00)
[2020-06-09] MEDS ORDERED: DEXAMETHASONE SOD PHOSPHATE 4 MG/1 ML VIAL ONE (03:12)
[2020-06-09] MEDS: DEXAMETHASONE SOD PHOSPHATE 10 MG/1 ML VIAL IVPUSH SCH ×2 (03:18→09:48)
[2020-06-09] MEDS ORDERED: ASPIRIN 300 MG SUPP.RECT RC ONE ×2 (03:23→05:34)
[2020-06-09 06:42] LABS: BASO % 0.3 % (0-2.0); HEMATOCRIT 41.3 % (32.4-45.2); HEMOGLOBIN 13.6 GM/dL (10.7-15.3); LYMPH % 39.2 % (8-40); MCH 28.2 pg (25.7-33.7); MCHC 32.9 g/dl (32.0-36.0); MEAN CELL VOLUME 85.6 fl (80-96); MEAN PLT VOLUME 8.6 fl (7.5-11.1); MONO % 1.4 % (3.8-10.2); NEUT % 59.1 % (42.8-82.8); PLATELET COUNT 130 K/MM3 (134-434); RBC 4.83 M/mm3 (3.60-5.2); RDW 16.8 % (11.6-15.6); WHITE BLOOD COUNT 17.2 K/mm3 (4.0-10.0)
[2020-06-09 07:04] LABS: CALCIUM 8.6 mg/dL (8.5-10.1)
[2020-06-09 07:05] LABS: BLOOD UREA NITROGEN 19.3 mg/dL (7-18)
[2020-06-09 07:08] LABS: CREATININE 0.5 mg/dL (0.55-1.3)
[2020-06-09 07:09] LABS: BILIRUBIN,TOTAL 0.5 mg/dL (0.2-1); TOT PROT 5.8 g/dl (6.4-8.2)
[2020-06-09 09:08] LABS: PHOSPHOROUS 3.9 mg/dL (2.5-4.9)
[2020-06-09] MEDS ORDERED: PT OWN MED DRAWER 7, Y5N ONE (09:46)
[2020-06-09] MEDS: PANTOPRAZOLE SODIUM 40 MG VIAL IVPUSH SCH (09:48)
[2020-06-09] MEDS: levETIRAcetam 500 MG/5 ML INJECTION VIAL IVPB SCH ×2 (09:49→21:47)
[2020-06-09] MEDS ORDERED: ASPIRIN 300 MG SUPP.RECT PR SCH (10:00)
[2020-06-09] MEDS: ATROPINE SO4 1% OPHTH SOLN 5 ML BOTTLE OD SCH (12:51)
[2020-06-09] MEDS: prednisoLONE ACETATE 1% OPHTH SUSP 5 ML BOTTLE OD SCH ×4 (12:52→21:47)
[2020-06-10] MEDS ORDERED: DEXAMETHASONE SOD PHOSPHATE 4 MG/1 ML VIAL IVPB SCH (02:00)
[2020-06-10] MEDS: DEXAMETHASONE SOD PHOSPHATE 4 MG/1 ML VIAL IVPB SCH ×4 (02:42→21:18)
[2020-06-10] MEDS ORDERED: PT OWN MED DRAWER 7, Y5N ONE (09:05)
[2020-06-10 09:14] LABS: BASO % 0.5 % (0-2.0); HEMATOCRIT 40.9 % (32.4-45.2); HEMOGLOBIN 13.6 GM/dL (10.7-15.3); LYMPH % 41.4 % (8-40); MCH 28.7 pg (25.7-33.7); MCHC 33.2 g/dl (32.0-36.0); MEAN CELL VOLUME 86.3 fl (80-96); MEAN PLT VOLUME 9.5 fl (7.5-11.1); MONO % 2.8 % (3.8-10.2); NEUT % 55.3 % (42.8-82.8); PLATELET COUNT 140 K/MM3 (134-434); RBC 4.75 M/mm3 (3.60-5.2); RDW 16.7 % (11.6-15.6); WHITE BLOOD COUNT 17.1 K/mm3 (4.0-10.0)
[2020-06-10] MEDS: ATROPINE SO4 1% OPHTH SOLN 5 ML BOTTLE OD SCH (09:34)
[2020-06-10] MEDS: levETIRAcetam 500 MG/5 ML INJECTION VIAL IVPB SCH ×2 (09:34→21:18)
[2020-06-10 09:35] LABS: BLOOD UREA NITROGEN 22.8 mg/dL (7-18); CALCIUM 8.5 mg/dL (8.5-10.1)
[2020-06-10 09:36] LABS: MAGNESIUM 2.1 mg/dL (1.8-2.4)
[2020-06-10] MEDS: prednisoLONE ACETATE 1% OPHTH SUSP 5 ML BOTTLE OD SCH ×4 (09:36→21:31)
[2020-06-10 09:38] LABS: CREATININE 0.5 mg/dL (0.55-1.3)
[2020-06-10] MEDS: PANTOPRAZOLE SODIUM 40 MG VIAL IVPUSH SCH (09:38)
[2020-06-10 09:39] LABS: PHOSPHOROUS 4.2 mg/dL (2.5-4.9)
[2020-06-10 09:40] LABS: BILIRUBIN,TOTAL 0.7 mg/dL (0.2-1); TOT PROT 5.5 g/dl (6.4-8.2)
[2020-06-10] MEDS ORDERED: DEXAMETHASONE SOD PHOSPHATE 4 MG/1 ML VIAL IVPUSH SCH (10:00)
[2020-06-10] MEDS ORDERED: LEVOTHYROXINE SODIUM 100 MCG VIAL IVPUSH SCH (10:00)
[2020-06-10] MEDS: POTASSIUM CHLORIDE ORAL LIQUID 20 MEQ/15 ML PO SCH ×2 (12:36→21:19)
[2020-06-10 16:10] VITALS: BMI 25.1
[2020-06-10] MEDS: LACTATED RINGERS SOLUTION 1,000 ML/1,000 ML INFUS.BAG IV SCH (17:39)
[2020-06-10] MEDS: ROSUVASTATIN CA 20 MG TABLET PO SCH (21:18)
[2020-06-11] MEDS: DEXAMETHASONE SOD PHOSPHATE 4 MG/1 ML VIAL IVPB SCH ×4 (02:09→22:18)
[2020-06-11] MEDS ORDERED: LEVOTHYROXINE NA 100 MCG TABLET (FP) PO SCH (07:00)
[2020-06-11 07:59] LABS: BASO % 0.2 % (0-2.0); HEMOGLOBIN 13.3 GM/dL (10.7-15.3); LYMPH % 43.1 % (8-40); MCH 28.7 pg (25.7-33.7); MCHC 33.3 g/dl (32.0-36.0); MEAN CELL VOLUME 86.2 fl (80-96); MEAN PLT VOLUME 9.6 fl (7.5-11.1); MONO % 2.4 % (3.8-10.2); NEUT % 54.3 % (42.8-82.8); PLATELET COUNT 150 K/MM3 (134-434); RBC 4.64 M/mm3 (3.60-5.2); RDW 16.9 % (11.6-15.6); WHITE BLOOD COUNT 18.2 K/mm3 (4.0-10.0)
[2020-06-11 08:15] LABS: CREATININE 0.6 mg/dL (0.55-1.3)
[2020-06-11 08:16] LABS: BLOOD UREA NITROGEN 37.9 mg/dL (7-18)
[2020-06-11 08:17] LABS: BILIRUBIN,TOTAL 0.8 mg/dL (0.2-1); TOT PROT 5.5 g/dl (6.4-8.2)
[2020-06-11 08:18] LABS: CALCIUM 8.9 mg/dL (8.5-10.1)
[2020-06-11] MEDS: PANTOPRAZOLE SODIUM 40 MG VIAL IVPUSH SCH (09:34)
[2020-06-11] MEDS: levETIRAcetam 500 MG/5 ML INJECTION VIAL IVPB SCH ×2 (09:35→22:18)
[2020-06-11] MEDS: AMINO ACIDS/PROTEIN HYDROLYS 30 ML LIQUID.PKT PO SCH (09:35)
[2020-06-11] MEDS: ATROPINE SO4 1% OPHTH SOLN 5 ML BOTTLE OD SCH (09:36)
[2020-06-11] MEDS: metoPROLOL SUCCINATE 25 MG TAB.SR.24H (FP) PO SCH (09:36)
[2020-06-11] MEDS: prednisoLONE ACETATE 1% OPHTH SUSP 5 ML BOTTLE OD SCH ×4 (09:36→22:18)
[2020-06-11] MEDS: MEMANTINE HCL 5 MG TABLET (UD) PO SCH (10:28)
[2020-06-11] MEDS: ARIPiprazole 5 MG TABLET PO SCH (10:28)
[2020-06-11] MEDS ORDERED: PT OWN MED DRAWER 7, Y5N ONE (11:24)
[2020-06-11] MEDS: LACTATED RINGERS SOLUTION 1,000 ML/1,000 ML INFUS.BAG IV SCH ×2 (12:12→22:17)
[2020-06-11] MEDS: ROSUVASTATIN CA 20 MG TABLET PO SCH (22:18)
[2020-06-12] MEDS: DEXAMETHASONE SOD PHOSPHATE 4 MG/1 ML VIAL IVPB SCH ×5 (02:57→21:32)
[2020-06-12] MEDS: AMINO ACIDS/PROTEIN HYDROLYS 30 ML LIQUID.PKT PO SCH (08:42)
[2020-06-12 09:26] LABS: HEMATOCRIT 39.9 % (32.4-45.2); MCH 28.8 pg (25.7-33.7); MCHC 32.6 g/dl (32.0-36.0); MEAN CELL VOLUME 88.4 fl (80-96); MEAN PLT VOLUME 9.4 fl (7.5-11.1); PLATELET COUNT 141 K/MM3 (134-434); RBC 4.52 M/mm3 (3.60-5.2); RDW 16.9 % (11.6-15.6); WHITE BLOOD COUNT 16.9 K/mm3 (4.0-10.0)
[2020-06-12 10:06] LABS: BLOOD UREA NITROGEN 39.6 mg/dL (7-18); CALCIUM 8.6 mg/dL (8.5-10.1); MAGNESIUM 2.1 mg/dL (1.8-2.4)
[2020-06-12 10:09] LABS: CREATININE 0.6 mg/dL (0.55-1.3)
[2020-06-12] MEDS ORDERED: PT OWN MED DRAWER 7, Y5N ONE (10:11)
[2020-06-12] MEDS: levETIRAcetam 500 MG/5 ML INJECTION VIAL IVPB SCH ×2 (10:32→21:32)
[2020-06-12] MEDS: PANTOPRAZOLE SODIUM 40 MG VIAL IVPUSH SCH (10:35)
[2020-06-12] MEDS: ATROPINE SO4 1% OPHTH SOLN 5 ML BOTTLE OD SCH (10:36)
[2020-06-12] MEDS: MEMANTINE HCL 5 MG TABLET (UD) PO SCH (10:36)
[2020-06-12] MEDS: ARIPiprazole 5 MG TABLET PO SCH (10:36)
[2020-06-12] MEDS: prednisoLONE ACETATE 1% OPHTH SUSP 5 ML BOTTLE OD SCH ×4 (10:36→21:33)
[2020-06-12] MEDS: metoPROLOL SUCCINATE 25 MG TAB.SR.24H (FP) PO SCH (10:37)
[2020-06-12] MEDS: SODIUM CHLORIDE 0.45% 1,000 ML IV SCH (18:42)
[2020-06-12] MEDS: ROSUVASTATIN CA 20 MG TABLET PO SCH (21:32)
[2020-06-13] MEDS: DEXAMETHASONE SOD PHOSPHATE 4 MG/1 ML VIAL IVPB SCH ×5 (02:06→17:30)
[2020-06-13 06:36] LABS: BASO % 0.2 % (0-2.0); HEMATOCRIT 38.9 % (32.4-45.2); HEMOGLOBIN 12.8 GM/dL (10.7-15.3); LYMPH % 42.8 % (8-40); MCH 28.6 pg (25.7-33.7); MCHC 32.8 g/dl (32.0-36.0); MEAN CELL VOLUME 87.2 fl (80-96); MEAN PLT VOLUME 9.1 fl (7.5-11.1); MONO % 2.2 % (3.8-10.2); NEUT % 54.8 % (42.8-82.8); PLATELET COUNT 134 K/MM3 (134-434); RBC 4.46 M/mm3 (3.60-5.2); RDW 16.5 % (11.6-15.6); WHITE BLOOD COUNT 16.6 K/mm3 (4.0-10.0)
[2020-06-13 07:05] LABS: CALCIUM 8.3 mg/dL (8.5-10.1)
[2020-06-13 07:06] LABS: BLOOD UREA NITROGEN 37.5 mg/dL (7-18)
[2020-06-13 07:09] LABS: CREATININE 0.5 mg/dL (0.55-1.3)
[2020-06-13] MEDS: AMINO ACIDS/PROTEIN HYDROLYS 30 ML LIQUID.PKT PO SCH (08:31)
[2020-06-13] MEDS ORDERED: PT OWN MED DRAWER 7, Y5N ONE ×2 (10:11→21:46)
[2020-06-13] MEDS: PANTOPRAZOLE SODIUM 40 MG VIAL IVPUSH SCH (10:27)
[2020-06-13] MEDS: ENOXAPARIN NA (PORCINE) 40 MG/0.4 ML DISP.SYRIN SQ SCH (10:27)
[2020-06-13] MEDS: levETIRAcetam 500 MG/5 ML INJECTION VIAL IVPB SCH ×2 (10:28→21:51)
[2020-06-13] MEDS: MEMANTINE HCL 5 MG TABLET (UD) PO SCH (10:28)
[2020-06-13] MEDS: metoPROLOL SUCCINATE 25 MG TAB.SR.24H (FP) PO SCH (10:28)
[2020-06-13] MEDS: prednisoLONE ACETATE 1% OPHTH SUSP 5 ML BOTTLE OD SCH ×4 (10:29→21:51)
[2020-06-13] MEDS: ATROPINE SO4 1% OPHTH SOLN 5 ML BOTTLE OD SCH (10:29)
[2020-06-13] MEDS: ARIPiprazole 5 MG TABLET PO SCH (10:29)
[2020-06-13 15:51] LABS: ANISOCYTOSIS 0; MACROCYTOSIS 0; PLATELET ESTIMATE DECREASED
[2020-06-13] MEDS: ROSUVASTATIN CA 20 MG TABLET PO SCH (21:51)
[2020-06-13] MEDS: SODIUM CHLORIDE 0.45% 1,000 ML IV SCH (21:56)
[2020-06-14] MEDS: DEXAMETHASONE SOD PHOSPHATE 4 MG/1 ML VIAL IVPB SCH ×3 (02:18→18:15)
[2020-06-14 07:17] LABS: BASO % 0.1 % (0-2.0); HEMATOCRIT 39.1 % (32.4-45.2); HEMOGLOBIN 12.9 GM/dL (10.7-15.3); LYMPH % 40.7 % (8-40); MCH 28.6 pg (25.7-33.7); MCHC 33.1 g/dl (32.0-36.0); MEAN CELL VOLUME 86.5 fl (80-96); MEAN PLT VOLUME 9.1 fl (7.5-11.1); MONO % 2.6 % (3.8-10.2); NEUT % 56.6 % (42.8-82.8); PLATELET COUNT 131 K/MM3 (134-434); RBC 4.52 M/mm3 (3.60-5.2); WHITE BLOOD COUNT 17.4 K/mm3 (4.0-10.0)
[2020-06-14 07:23] LABS: CALCIUM 8.4 mg/dL (8.5-10.1)
[2020-06-14 07:24] LABS: BLOOD UREA NITROGEN 35.7 mg/dL (7-18)
[2020-06-14 07:27] LABS: CREATININE 0.6 mg/dL (0.55-1.3)
[2020-06-14] MEDS ORDERED: PT OWN MED DRAWER 7, Y5N ONE ×2 (10:25→21:09)
[2020-06-14] MEDS: ARIPiprazole 5 MG TABLET PO SCH (10:38)
[2020-06-14] MEDS: AMINO ACIDS/PROTEIN HYDROLYS 30 ML LIQUID.PKT PO SCH (10:38)
[2020-06-14] MEDS: ASPIRIN 81 MG CHEWABLE TABLETS PO SCH (10:38)
[2020-06-14] MEDS: ATROPINE SO4 1% OPHTH SOLN 5 ML BOTTLE OD SCH (10:39)
[2020-06-14] MEDS: NYSTATIN POWDER 100,000 UNITS/GM - 15 GM TOPICAL POWDER TP SCH (10:39)
[2020-06-14] MEDS: levETIRAcetam 500 MG/5 ML INJECTION VIAL IVPB SCH ×2 (10:39→21:26)
[2020-06-14] MEDS: ENOXAPARIN NA (PORCINE) 40 MG/0.4 ML DISP.SYRIN SQ SCH (10:39)
[2020-06-14] MEDS: MEMANTINE HCL 5 MG TABLET (UD) PO SCH (10:39)
[2020-06-14] MEDS: prednisoLONE ACETATE 1% OPHTH SUSP 5 ML BOTTLE OD SCH ×4 (10:40→21:26)
[2020-06-14] MEDS: PANTOPRAZOLE SODIUM 40 MG VIAL IVPUSH SCH (10:40)
[2020-06-14] MEDS: metoPROLOL SUCCINATE 25 MG TAB.SR.24H (FP) PO SCH (10:40)
[2020-06-14] MEDS: SODIUM CHLORIDE 0.45% 1,000 ML IV SCH (18:15)
[2020-06-14] MEDS: ROSUVASTATIN CA 20 MG TABLET PO SCH (21:26)
[2020-06-15] MEDS: DEXAMETHASONE SOD PHOSPHATE 4 MG/1 ML VIAL IVPB SCH ×2 (01:55→09:21)
[2020-06-15 06:48] VITALS: TEMP 97.9
[2020-06-15] MEDS ORDERED: PT OWN MED DRAWER 7, Y5N ONE ×2 (09:19→11:04)
[2020-06-15] MEDS: ENOXAPARIN NA (PORCINE) 40 MG/0.4 ML DISP.SYRIN SQ SCH (09:21)
[2020-06-15] MEDS: AMINO ACIDS/PROTEIN HYDROLYS 30 ML LIQUID.PKT PO SCH (09:21)
[2020-06-15] MEDS: PANTOPRAZOLE SODIUM 40 MG VIAL IVPUSH SCH (09:21)
[2020-06-15] MEDS: NYSTATIN POWDER 100,000 UNITS/GM - 15 GM TOPICAL POWDER TP SCH (09:22)
[2020-06-15] MEDS: ASPIRIN 81 MG CHEWABLE TABLETS PO SCH (09:22)
[2020-06-15] MEDS: prednisoLONE ACETATE 1% OPHTH SUSP 5 ML BOTTLE OD SCH (09:22)
[2020-06-15] MEDS: metoPROLOL SUCCINATE 25 MG TAB.SR.24H (FP) PO SCH (09:22)
[2020-06-15] MEDS: ATROPINE SO4 1% OPHTH SOLN 5 ML BOTTLE OD SCH (09:22)
[2020-06-15 09:36] VITALS: BP 156/71; PULSE 61
[2020-06-15] MEDS: levETIRAcetam 500 MG/5 ML INJECTION VIAL IVPB SCH ×2 (11:07→11:27)
[2020-06-15] MEDS: MEMANTINE HCL 5 MG TABLET (UD) PO SCH (11:08)
[2020-06-15] MEDS: ARIPiprazole 5 MG TABLET PO SCH (11:08)
== END 2020-06-15 13:51 | disposition home or self-care (01) | DRG 54 ==
LOC: JER 19:33 → JERBED 21:37 → J4S 06-09 08:37
PROVIDERS: ADMIT Internal Medicine; ATTEND Internal Medicine
DX: C79.31 Secondary malignant neoplasm of brain (principal); G93.6 Cerebral edema; I24.8 Other forms of acute ischemic heart disease; C78.00 Secondary malignant neoplasm of unspecified lung; R47.01 Aphasia; E78.00 Pure hypercholesterolemia, unspecified; F32.9 Major depressive disorder, single episode, unspecified; G62.9 Polyneuropathy, unspecified; Z85.6 Personal history of leukemia; H35.30 Unspecified macular degeneration; E03.9 Hypothyroidism, unspecified; C43.60 Malignant melanoma of unspecified upper limb, including shoulder; E07.81 Sick-euthyroid syndrome; R56.9 Unspecified convulsions; R41.82 Altered mental status, unspecified
CPT/HCPCS: 36415; 70450-TC; 70552-TC; 71045-TC-FY; 72125-TC; 80048; 80053; 80061; 82550; 82607; 82746; 82962; 83036; 83605; 83721; 83735; 84100; 84439; 84443; 84484; 85025; 85027; 85610; 85730; 93005; 93010; 93306-TC; 97116-GP; 97161-GP; 99285-25; A9579; C9803; J1100; U0003